=== PATIENT | male | born 1990 | race Caucasian/White ===

== ENCOUNTER 2018-08-14 18:20 | Emergency (ER) | payer OTHER ==
[2018-08-14 19:04] VITALS: BP 138/75; PULSE 89; O2SAT 97
--- NOTE | 2018-08-14 19:17 | ERPHSYRPT ---
- History of Present Illness Time Seen by Provider: 08/14/18 19:02 Source: patient Exam Limitations: no limitations Patient Subjective Stated Complaint: STATES HAS HAD LEFT GROIN AND LEG AND FOOT PAIN FOR ONE MONTH. TWO DAYS AGO HE LIFTED A LAWNMOWER AND FELT A SHARP PAIN IN LEFT GROIN. TODAY HAS A LUMP IN LEFT GROIN THAT IS TENDER. DENIES FEVER. Triage Nursing Assessment: AMBULATED TO ROOM PER SELF. SKIN W/D, COLOR NORMAL, RESP EASY. LEFT LEG WARM TO TOUCH, NORMAL COLOR. GOOD PEDAL PULSE. Physician History: Pt has been c/o left foot. patel and hip pain for about one month. He denies fall or any injury, no back pain, leg weakness, numbness, or other complaints. He suffered a tick bite to his left groin 3 days ago, and his left hip pain became worse, he noticed a small lump in the left groin, and removed the tick. He has been ambulating without a limp or difficulty, no leg weakness, no fever, chills, headaches, dizziness, nausea, chest pain or other complaints. He also c/ o generalized weakness, fatigue no vomiting, diarrhea, black or bloody stools, or difficulty breathing, cough, other complaints. Timing/Duration: day(s) (3) Occured at: home Context: other (tick bite) Quality: aching Hip Pain Location: hip (L) Severity of Pain-Max: moderate Severity of Pain-Current: moderate Modifying Factors: Improves With: nothing Symptoms prior to fall: none Associated Symptoms: fatigue, groin pain, lumps, No fever, No trouble walking Allergies/Adverse Reactions: acetaminophen [From Tylenol] Allergy (Mild, Verified 08/14/18 19:04) hep c Home Medications: No Reportable Medications [No Reported Medications] 08/14/18 [History] Hx Tetanus, Diphtheria Vaccination/Date Given: Yes Hx Influenza Vaccination/Date Given: No Hx Pneumococcal Vaccination/Date Given: No - Review of Systems Constitutional: No Symptoms, Weakness Ears, Nose, & Throat: No Symptoms Respiratory: No Symptoms Cardiac: No Symptoms Abdominal/Gastrointestinal: No Symptoms Genitourinary Symptoms: No Symptoms Musculoskeletal: Joint Pain Skin: No Symptoms Psychological: No Symptoms Endocrine: No Symptoms Hematologic/Lymphatic: Adenopathy All Other Systems: Reviewed and Negative - Past Medical History Pertinent Past Medical History: Yes Musculoskeletal History: Fractures Other Medical History: HEP C - Past Surgical History Past Surgical History: No - Social History Smoking Status: Current every day smoker How long have you smoked: 12 Exposure to second hand smoke: Yes Drug Use: none Patient Lives Alone: No - Nursing Vital Signs Nursing Vital Signs: Initial Vital Signs Temperature 97.6 F 08/14/18 18:47 Pulse Rate 89 08/14/18 18:47 Respiratory Rate 16 08/14/18 18:47 Blood Pressure 138/75 08/14/18 18:47 O2 Sat by Pulse Oximetry 97 08/14/18 18:47 Pain Scale Pain Intensity [Left Foot] 2 Pain Intensity 2 - Physical Exam General Appearance: no apparent distress Eye Exam: eyes nml inspection Ears, Nose, Throat Exam: normal ENT inspection, pharynx normal Neck Exam: normal inspection, non-tender, supple, No JVD Respiratory Exam: normal breath sounds, lungs clear Cardiovascular Exam: regular rate/rhythm, normal heart sounds, normal peripheral pulses, No murmur Gastrointestinal Exam: soft, normal bowel sounds, No tenderness, No distention, No mass, No guarding, No rebound, No hernia, No organomegaly Male Genetalia Exam: normal genitalia Back Exam: normal inspection, No CVA tenderness, No rash Extremity Exam: normal inspection, No calf tenderness, No sherry's sign, No pedal edema Peripheral Pulses: femoral (R): 3+, femoral (L): 3+, dorsalis-pedis (R): 3+, dorsalis-pedis (L): 3+ Neurologic Exam: alert, oriented x 3, cooperative, normal mood/affect, nml station & gait, No motor deficits, No motor weakness Skin Exam: normal color, warm, dry, other (4-5 mm small crater lesion with clean base in the left groin ( tick removed from here, no remnants of the insect seen, no erythema, discharge or signs of infection.), No rash, No petechiae, No cyanosis Lymphatic Exam: adenopathy, inguinal node tender (L), other (no skin changes, edema, redness, 2-3 small < 1 cm mobile, slightly tender lymph nodes in the groin area.) SpO2 Interpretation: normal SpO2: 97 O2 Delivery: Room Air - Course Nursing assessment & vital signs reviewed: Yes EKG Interpreted by Me: RATE (85/min), NORMAL AXIS, NORMAL INTERVALS, NORMAL QRS , NORMAL ST-T Ordered Tests: Active Orders 24 hr Category Date Time Status EKG-ER Only STAT Care 08/14/18 19:08 Active CBC W DIFF Stat Lab 08/14/18 19:25 Received CK-Creatinine Phosphokinase Stat Lab 08/14/18 19:25 Received CMP Stat Lab 08/14/18 19:25 Received MAGNESIUM Stat Lab 08/14/18 19:25 Received T4 (Thyroxine) Stat Lab 08/14/18 19:25 Received TROPONIN Q3H Lab 08/14/18 19:25 Received TROPONIN Q3H Lab 08/14/18 22:15 Ordered TROPONIN Q3H Lab 08/15/18 01:15 Ordered TROPONIN Q3H Lab 08/15/18 04:15 Ordered TROPONIN Q3H Lab 08/15/18 07:15 Ordered TSH, 3RD Generation Stat Lab 08/14/18 19:25 Received UA W/RFX UR CULTURE Stat Lab 08/14/18 19:08 Uncollected Urine Triage Profile Stat Lab 08/14/18 19:08 Uncollected - Progress Progress: unchanged Progress Note: 08/14/18 19:41 Pt's Ekg was reviewed blood was drawn, he walked out, and instructed us to call him with the results, he wants to follow up with his physician, left AMA, stable medically. He refused X ray. Counseled pt/family regarding: diagnosis, need for follow-up - Departure Departure Disposition: AMA Clinical Impression: Hip pain Qualifiers: Laterality: left Qualified Code(s): M25.552 - Pain in left hip Tick bite of abdominal wall Qualifiers: Encounter type: initial encounter Qualified Code(s): S30.861A - Insect bite ( nonvenomous) of abdominal wall, initial encounter; W57.XXXA - Bitten or stung by nonvenomous insect and other nonvenomous arthropods, initial encounter Fatigue Qualifiers: Fatigue type: unspecified Qualified Code(s): R53.83 - Other fatigue Clinical Impression: (Ruled Out): Tick bite of axillary region Condition: Stable Critical Care Time: No Referrals: IVY AMAYA [Primary Care Provider] - Additional Instructions: Follow up with your physician in 2-3 days, return if severe pain, swelling, leg weakness, fever> 102 F!
[2018-08-14 19:33] LABS: BASOPHIL % 0.4 % (0.0-0.4); Basophil (Absolute #) 0.03 (0-0.4); Eosinophil % 4.9 % (0.00-5.0); Eosinophil (Absolute #) 0.34 (0-0.5); Granulocyte Absolute (ANC) 3.54 (1.4-6.9); Granulocytes % 51.5 % (36.0-66.0); Hematocrit 44.1 % (42-50); Hemoglobin 14.9 gm/dl (12.5-18.0); Lymphocyte (Absolute #) 2.29 (1.0-4.6); Lymphocytes % 33.2 % (24.0-44.0); Mean Cell Volume 87.7 fl (78-100); Mean Corpuscular Hemoglobin 29.6 pg (26-32); Mean Corpuscular Hgb Concent. 33.8 g/dl (32-36); Mean Platelet Volume 10.5 fl (6-9.5); Monocyte (Absolute #) 0.69 (0.0-1.3); Platelet Count 231 K/mm3 (150-450); Red Blood Count 5.03 M/mm3 (4.1-5.6); Red Cell Distribution Width 13.1 % (11.5-14.0); White Blood Count 6.9 K/mm3 (4.0-10.5)
[2018-08-14 19:46] LABS: ALKALINE PHOSPHATASE 119 U/L (38-126); ANION GAP 13.2 MEQ/L (5-15); BLOOD UREA NITROGEN 10 mg/dL (9-20); CHLORIDE 107 mmol/L (98-107); Calcium 9.3 mg/dL (8.4-10.2); Carbon Dioxide 27 mmol/L (22-30); Creatinine 1 0.86 mg/dL (0.66-1.25); Glucose 73 mg/dL (74-106); SGOT/AST 27 U/L (17-59); SGPT/ALT 19 U/L (0-50); SODIUM 143 mmol/L (137-145)
[2018-08-20 13:30] LABS: 23kDaM Absent (Absent); 39kDaM Absent (Absent); 41kdAM Absent (Absent)
== END 2018-08-14 19:30 | disposition left against medical advice (07) ==
LOC: ED 18:20
DX: M25.552 Pain in left hip (principal); S30.861A Insect bite (nonvenomous) of abdominal wall, initial encounter
CPT/HCPCS: 36415; 80053; 82550; 83735; 84436; 84443; 84484; 85025; 86618; 93005; 99284